=== PATIENT | male | born 1980 | race Caucasian/White ===

== ENCOUNTER → 2017-11-09 00:13 | Outpatient (CLI) | payer OTHER, SELFPAY ==
[2017-11-09 09:38] LABS: Abs Immature Grans 0.04 k/cumm (0.0-0.09); Absolute Basophil Count 0.02 k/cumm (0.0-0.2); Absolute Lymphocyte Count 3.29 k/cumm (1.2-3.4); Absolute Monocyte Count 0.77 k/cumm (0.11-0.7); Absolute Neutrophil Count 4.44 k/cumm (1.2-6.7); Basophils % 0.2; Eosinophils % 7.6; HCT 41.7 % (40.0-50.0); HGB 14.4 g/dL (13.5-17.5); Immature Grans % 0.4; Lymphocytes % 35.5; Mean Corp. HGB Concentration 34.5 g/dL (32.0-36.0); Mean Corpuscular Hemoglobin 30.1 pg (27.0-33.0); Mean Corpuscular Volume 87.1 fL (80-95); Mean Platelet Volume 9.5 fL (8.0-11.0); Monocytes % 8.3; Platelet Count 284 x1000/uL (130-400); RBC 4.79 m/cumm (4.50-6.00); RBC Distribution Width 12.6 % (11.8-14.1); White Blood Cell Count 9.26 k/cumm (4.4-10.8)
[2017-11-09 10:49] LABS: ALT 28 U/L (12-78); AST 17 U/L (15-37); Albumin 4.1 g/dL (3.4-5.0); Alkaline Phosphatase 91 U/L (46-116); Anion Gap 9.2 mmol/L (3-11); BUN 17 mg/dL (7-18); Bilirubin, Total 0.5 mg/dL (0.2-1.0); CO2 30.8 mmol/L (21.0-32.0); CREATININE 1.06 mg/dL (0.70-1.30); Calcium 8.9 mg/dL (8.5-10.1); Chloride 103 mmol/L (98-107); Cholesterol 186 mg/dL (50-200); Glucose 104 mg/dL (70-100); HDL Cholesterol 66 mg/dL (40-60); LDL CHOLESTEROL 108 mg/dL (<100); Potassium 4.2 mmol/L (3.5-5.1); Sodium 143 mmol/L (136-145); Total Protein 7.1 g/dL (6.4-8.2); Triglyceride 48 mg/dL (30-150)
== END ==
PROVIDERS: PCP Student in an Organized Health Care Education/Training Program; Visit Provider Student in an Organized Health Care Education/Training Program
DX: I10 Essential (primary) hypertension (principal); G47.62 Sleep related leg cramps; Z13.220 Encounter for screening for lipoid disorders; J45.20 Mild intermittent asthma, uncomplicated; Z87.01 Personal history of pneumonia (recurrent)
CPT/HCPCS: 36415; 80053; 80061; 83721; 85025

== ENCOUNTER 2018-06-28 08:11 | Outpatient (CLI) | payer OTHER, SELFPAY ==
[2018-06-28 11:00] LABS: BUN 11 mg/dL (7-18); CREATININE 0.96 mg/dL (0.70-1.30); Chloride 101 mmol/L (98-107); Glucose 94 mg/dL (70-100); Potassium 4.1 mmol/L (3.5-5.1); Sodium 140 mmol/L (136-145)
== END 2018-06-28 08:31 ==
PROVIDERS: PCP Student in an Organized Health Care Education/Training Program; Visit Provider Student in an Organized Health Care Education/Training Program
DX: R60.0 Localized edema (principal); R79.89 Other specified abnormal findings of blood chemistry
CPT/HCPCS: 36415; 80048

== ENCOUNTER 2018-08-23 01:09 | Outpatient (CLI) | payer OTHER, SELFPAY ==
[2018-08-23 10:20] LABS: ALT 29 U/L (12-78); AST 15 U/L (15-37); Albumin 3.8 g/dL (3.4-5.0); Alkaline Phosphatase 101 U/L (46-116); Anion Gap 7.6 mmol/L (3-11); BUN 14 mg/dL (7-18); Bilirubin, Total 0.3 mg/dL (0.2-1.0); CO2 33.4 mmol/L (21.0-32.0); Calcium 8.9 mg/dL (8.5-10.1); Chloride 101 mmol/L (98-107); Glucose 102 mg/dL (70-100); Potassium 4.4 mmol/L (3.5-5.1); Sodium 142 mmol/L (136-145); Total Protein 7.1 g/dL (6.4-8.2)
[2018-08-26 13:23] LABS: Testosterone, Free 6.23 ng/dL (4.65-18.1); Testosterone, Total 201 ng/dL (240-950)
== END 2018-08-23 01:29 ==
PROVIDERS: PCP Student in an Organized Health Care Education/Training Program; Visit Provider Student in an Organized Health Care Education/Training Program
DX: E46 Unspecified protein-calorie malnutrition (principal); R60.0 Localized edema; R53.83 Other fatigue; Z86.39 Personal history of other endocrine, nutritional and metabolic disease
CPT/HCPCS: 36415; 80053; 84402; 84403

== ENCOUNTER 2018-12-01 00:25 | Outpatient (CLI) | payer OTHER, SELFPAY ==
--- NOTE | 2018-12-01 11:41 | DI.RAD_ITS ---
SYMPTOM/DIAGNOSIS: R/O BONY PATHOLOGY S69.92XA LEFT THUMB: 12/01 Three views were obtained. No bony or soft tissue abnormality seen.
== END 2018-12-01 00:45 ==
PROVIDERS: PCP Student in an Organized Health Care Education/Training Program; Visit Provider Student in an Organized Health Care Education/Training Program
DX: S69.92XA Unspecified injury of left wrist, hand and finger(s), initial encounter (principal); M79.645 Pain in left finger(s)
CPT/HCPCS: 73140

== ENCOUNTER 2018-12-02 01:14 | Outpatient (CLI) | payer OTHER, SELFPAY ==
[2018-12-02 08:18] LABS: Anion Gap 6.2 mmol/L (3-11); BUN 15 mg/dL (7-18); CO2 31.8 mmol/L (21.0-32.0); CREATININE 1.09 mg/dL (0.70-1.30); Calcium 9.2 mg/dL (8.5-10.1); Chloride 102 mmol/L (98-107); Glucose 121 mg/dL (70-100); Potassium 3.9 mmol/L (3.5-5.1); Sodium 140 mmol/L (136-145)
[2018-12-02 20:12] LABS: Estradiol 25 pg/ml (0-40)
[2018-12-03 10:09] LABS: LH 2.5 mIU/ml (2-9)
[2018-12-03 10:11] LABS: Prolactin 6.6 ng/ml (2.1-17.7)
[2018-12-03 11:04] LABS: PSA, Screening 0.3 ng/ml (0-2.5)
[2018-12-05 02:24] LABS: Testosterone, Total 191 ng/dL (240-950)
== END 2018-12-02 01:34 ==
PROVIDERS: Urology; PCP Student in an Organized Health Care Education/Training Program; Visit Provider Student in an Organized Health Care Education/Training Program
DX: E29.1 Testicular hypofunction (principal); N62 Hypertrophy of breast; Z12.5 Encounter for screening for malignant neoplasm of prostate; R60.0 Localized edema; T50.2X5A Adverse effect of carbonic-anhydrase inhibitors, benzothiadiazides and other diuretics, initial encounter
CPT/HCPCS: 36415; 80048; 84153; 84403; 82670; 83002; 84146

== ENCOUNTER 2019-02-21 00:21 | Outpatient (CLI) | payer OTHER, SELFPAY ==
[2019-02-24 10:06] LABS: Testosterone, Total 909 ng/dL (240-950)
== END 2019-02-21 00:41 ==
PROVIDERS: PCP Student in an Organized Health Care Education/Training Program; Visit Provider Urology
DX: E29.1 Testicular hypofunction (principal)
CPT/HCPCS: 36415; 84403

== ENCOUNTER 2019-07-13 01:20 | Outpatient (CLI) | payer OTHER, SELFPAY ==
[2019-07-16 02:56] LABS: Testosterone, Total 397 ng/dL (240-950)
== END 2019-07-13 01:40 ==
PROVIDERS: PCP Student in an Organized Health Care Education/Training Program; Visit Provider Urology
DX: E29.1 Testicular hypofunction (principal)
CPT/HCPCS: 36415; 84403

== ENCOUNTER 2019-10-26 13:36 | Outpatient (REF) | payer OTHER, SELFPAY ==
[2019-10-29 15:30] LABS: Testosterone, Total 1140 ng/dL (240-950)
== END 2019-10-26 13:56 ==
LOC: LBN 13:36
PROVIDERS: PCP Student in an Organized Health Care Education/Training Program; Visit Provider Urology
DX: E29.1 Testicular hypofunction (principal)
CPT/HCPCS: 84403

== ENCOUNTER 2020-02-11 14:23 | Outpatient (REF) | payer OTHER, SELFPAY ==
[2020-02-16 12:31] LABS: Testosterone, Total 601 ng/dL (240-950)
== END 2020-02-11 14:43 ==
LOC: LBN 14:23
PROVIDERS: PCP Student in an Organized Health Care Education/Training Program; Visit Provider Nurse Practitioner Gerontology
DX: E29.1 Testicular hypofunction (principal)
CPT/HCPCS: 84403

== ENCOUNTER 2020-07-14 02:15 | Outpatient (CLI) | payer OTHER, SELFPAY ==
[2020-07-17 16:30] LABS: Testosterone, Total 266 ng/dL (240-950)
== END 2020-07-14 02:16 | disposition home or self-care (01) ==
LOC: LBO 02:15
PROVIDERS: PCP Student in an Organized Health Care Education/Training Program; Visit Provider Urology
DX: E29.1 Testicular hypofunction (principal)
CPT/HCPCS: 36415; 84403

== ENCOUNTER 2021-01-23 11:28 | Outpatient (CLI) | payer OTHER, SELFPAY ==
[2021-01-27 10:56] LABS: Testosterone, Total 543 ng/dL (240-950)
== END 2021-01-23 11:29 | disposition home or self-care (01) ==
PROVIDERS: PCP Student in an Organized Health Care Education/Training Program; Visit Provider Nurse Practitioner Gerontology
DX: E29.1 Testicular hypofunction (principal)
CPT/HCPCS: 36415; 84403

== ENCOUNTER 2021-07-31 01:38 | Outpatient (CLI) | payer BC, SELFPAY | END 2021-07-31 01:39 | disposition home or self-care (01) | LOC: LBO 01:39 | PROVIDERS: PCP Student in an Organized Health Care Education/Training Program; Visit Provider Nurse Practitioner Gerontology ==

== ENCOUNTER 2021-10-31 12:39 | Outpatient (CLI) | payer BC, SELFPAY ==
[2021-11-10 15:59] LABS: Testosterone, Total 1060 ng/dL (240-950)
== END 2021-10-31 12:40 | disposition home or self-care (01) ==
LOC: LBO 12:39
PROVIDERS: PCP Student in an Organized Health Care Education/Training Program; Visit Provider Nurse Practitioner Gerontology
DX: E29.1 Testicular hypofunction (principal)
CPT/HCPCS: 36415; 84403

== ENCOUNTER 2022-01-29 11:06 | Outpatient (CLI) | payer BC, OTHER, SELFPAY ==
--- NOTE | 2022-01-29 11:00 | RT.EKG_ITS ---
APPROVED REPORT Exam: Resting ECG Reason for Exam: HIGH RISK MEDICATION Patient Location: O HR:53 bpm ECG Measurements Heart Rate 53 AXIS MN 173 P 44 QRSd 93 QRS 22 QT 422 T 32 QTc 397 Conclusion Sinus rhythm...normal P axis, V-rate 50- 99
== END 2022-01-29 11:07 | disposition home or self-care (01) ==
PROVIDERS: PCP Student in an Organized Health Care Education/Training Program; Visit Provider Family Medicine
DX: Z51.81 Encounter for therapeutic drug level monitoring (principal)
CPT/HCPCS: 93005; 93010

== ENCOUNTER 2022-04-30 03:44 | Outpatient (CLI) | payer BC, SELFPAY ==
[2022-05-06 14:46] LABS: Testosterone, Total 832 ng/dL (240-950)
== END 2022-04-30 03:45 | disposition home or self-care (01) ==
PROVIDERS: PCP Student in an Organized Health Care Education/Training Program; Visit Provider Nurse Practitioner Gerontology
DX: E29.1 Testicular hypofunction (principal); R53.83 Other fatigue
CPT/HCPCS: 36415; 84403

== ENCOUNTER 2022-07-30 16:09 | Outpatient (REF) | payer SELFPAY ==
[2022-08-03 02:50] LABS: Testosterone, Total 460 ng/dL (240-950)
== END 2022-07-30 16:10 | disposition home or self-care (01) ==
LOC: LBO 16:09
PROVIDERS: PCP Student in an Organized Health Care Education/Training Program; Visit Provider Nurse Practitioner Gerontology
DX: E29.1 Testicular hypofunction (principal)
CPT/HCPCS: 36415; 84403

== ENCOUNTER 2023-01-01 01:52 | Outpatient (CLI) | payer OTHER, SELFPAY ==
[2023-01-04 11:56] LABS: Testosterone, Total 974 ng/dL (240-950)
== END 2023-01-01 01:53 | disposition home or self-care (01) ==
LOC: LOS 01:53
PROVIDERS: PCP Student in an Organized Health Care Education/Training Program; Visit Provider Nurse Practitioner Gerontology
DX: E29.1 Testicular hypofunction (principal)
CPT/HCPCS: 36415; 84403

== ENCOUNTER 2023-08-15 14:50 | Outpatient (CLI) | payer OTHER, SELFPAY ==
[2023-08-18 09:34] LABS: Anaplasma phagocytophilum Negative (Negative); B. miyamotoi PCR Negative (Negative); Babesia divergens/MO-1 Negative (Negative); Babesia duncani Negative (Negative); Babesia microti Negative (Negative); Ehrlichia chaffeensis Negative (Negative); Ehrlichia ewingii/canis Negative (Negative); Ehrlichia muris eauclairensis Negative (Negative)
[2023-08-18 12:13] LABS: Lyme Ab w Rflx to Lyme Confirm Negative (Negative)
[2023-08-20 14:49] LABS: Testosterone, Total 262 ng/dL (240-950)
== END 2023-08-15 14:51 | disposition home or self-care (01) ==
LOC: LBO 14:53
PROVIDERS: Nurse Practitioner Family; PCP Student in an Organized Health Care Education/Training Program; Visit Provider Nurse Practitioner Gerontology
DX: E29.1 Testicular hypofunction (principal); W57.XXXA Bitten or stung by nonvenomous insect and other nonvenomous arthropods, initial encounter; S80.861A Insect bite (nonvenomous), right lower leg, initial encounter; X58.XXXA Exposure to other specified factors, initial encounter
CPT/HCPCS: 36415; 84403; 87798; 86618

== ENCOUNTER 2023-11-12 00:50 | Outpatient (CLI) | payer OTHER, SELFPAY ==
--- NOTE | 2023-11-12 | DI.RAD_ITS ---
Exam(s) XR LUMBAR SPINE AP, LAT EXAM: XR LUMBAR SPINE AP, LAT CLINICAL HISTORY: Z02.71 Encounter for Disability Determination-Low back pain,. TECHNIQUE: 2D digital imaging was performed of the lumbar spine. Three images were obtained. AP, l ateral and L5-S1 spot views were obtained. COMPARISON: No exams were available for comparison FINDINGS: BONES: No fracture or destructive lesion. There are endplate osteophytes seen at multiple levels of t he lumbar spine. There are degenerative changes of the facets at L5-S1. DISKS: Disc space narrowing is seen at T12-L1, L1-L2 and L4-L5. ALIGNMENT: There is grade 1 anterolisthesis of L4 on L5. There is spondylolysis at L5. SOFT TISSUE: Normal. IMPRESSION: 1. 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 2. Mild degenerative changes seen in the lumbar spine as described above. DATA REPOSITORY: RADIATION DOSE DELIVERED:
== END 2023-11-12 01:10 ==
PROVIDERS: PCP Student in an Organized Health Care Education/Training Program; Visit Provider Pediatrics Pediatric Rheumatology
DX: M47.26 Other spondylosis with radiculopathy, lumbar region (principal)
CPT/HCPCS: 72100

== ENCOUNTER 2024-01-05 03:35 | Outpatient (CLI) | payer SELFPAY ==
[2024-01-10 11:49] LABS: Testosterone, Total 536 ng/dL (240-950)
== END 2024-01-05 03:36 | disposition home or self-care (01) ==
LOC: LBO 03:35
PROVIDERS: PCP Student in an Organized Health Care Education/Training Program; Visit Provider Nurse Practitioner Gerontology
DX: E29.1 Testicular hypofunction (principal)
CPT/HCPCS: 36415; 84403

== ENCOUNTER 2024-03-04 12:47 | Outpatient (CLI) | payer OTHER, SELFPAY ==
--- NOTE | 2024-03-04 12:45 | RT.EKG_ITS ---
APPROVED REPORT Exam: Resting ECG Reason for Exam: High Risk Medication Patient Location: O HR:64 bpm ECG Measurements Heart Rate 64 AXIS NE 173 P 44 QRSd 89 QRS 2 QT 393 T 49 QTc 406 Conclusion Sinus rhythm...normal P axis, V-rate 50- 99 Normal Electrocardiogram
== END 2024-03-04 12:48 | disposition home or self-care (01) ==
PROVIDERS: PCP Student in an Organized Health Care Education/Training Program; Visit Provider Family Medicine
DX: Z79.899 Other long term (current) drug therapy (principal)
CPT/HCPCS: 93005; 93010

== ENCOUNTER 2024-06-01 03:03 | Outpatient (CLI) | payer OTHER, SELFPAY ==
[2024-06-01 14:05] LABS: Abs Immature Grans 0.02 10^3/uL (0.0-0.06); Absolute Basophil Count 0.05 10^3/uL (0.0-0.2); Absolute Lymphocyte Count 2.57 10^3/uL (1.2-3.4); Absolute Monocyte Count 0.84 10^3/uL (0.1-0.8); Absolute Neutrophil Count 5.92 10^3/uL (1.2-6.7); Basophils % 0.5 %; Eosinophils % 7.8 %; HGB 14.6 g/dL (13.5-17.5); Immature Grans % 0.2 %; Lymphocytes % 25.2 %; MCH 29.9 pg (27.0-33.0); MCHC 33.2 % (32.0-36.0); MCV 90 fL (80-95); MPV 9.9 fL (8.0-11.0); Monocytes % 8.2 %; Neutrophils % 58.1 %; Platelet Count 235 10^3/uL (130-400); RBC 4.89 10^6/uL (4.36-5.78); RDW-SD 39.6 fL
[2024-06-01 14:16] LABS: Hemoglobin A1C 5.6 % (<5.7)
[2024-06-01 15:01] LABS: ALT 27 U/L (16-63); AST 20 U/L (15-37); Albumin 3.9 g/dL (3.4-5.0); Alkaline Phosphatase 68 U/L (46-116); Anion Gap 4.7 mmol/L (3-11); BUN 14 mg/dL (7-18); Bilirubin, Total 0.4 mg/dL (0.2-1.0); CO2 35.3 mmol/L (21.0-32.0); Calcium 9.4 mg/dL (8.5-10.1); Calculated LDL 79 mg/dL (<100); Chloride 103 mmol/L (98-107); Cholesterol 169 mg/dL (<200); Estimated GFR 95.18 (mL/min/1.73m2); Glucose 88 mg/dL (74-106); HDL Cholesterol 76 mg/dL (>or=40); Potassium 4.1 mmol/L (3.5-5.1); Sodium 143 mmol/L (136-145); Total Protein 6.7 g/dL (6.4-8.2); Triglyceride 72 mg/dL (<150)
== END 2024-06-01 03:04 | disposition home or self-care (01) ==
PROVIDERS: Visit Provider Nurse Practitioner Family
DX: F17.290 Nicotine dependence, other tobacco product, uncomplicated (principal); E29.1 Testicular hypofunction; Z13.228 Encounter for screening for other metabolic disorders; Z13.220 Encounter for screening for lipoid disorders; Z13.1 Encounter for screening for diabetes mellitus
CPT/HCPCS: 36415; 80053; 80061; 83036; 85025

== ENCOUNTER 2024-06-22 02:15 | Outpatient (CLI) | payer OTHER, SELFPAY ==
[2024-06-25 16:47] LABS: Testosterone, Total 160 ng/dL (240-950)
== END 2024-06-22 02:16 | disposition home or self-care (01) ==
LOC: LBO 02:16
PROVIDERS: PCP Nurse Practitioner Gerontology; Visit Provider Nurse Practitioner Gerontology
DX: E29.1 Testicular hypofunction (principal)
CPT/HCPCS: 36415; 84403

== ENCOUNTER 2024-09-23 02:39 | Outpatient (CLI) | payer OTHER, SELFPAY | END 2024-09-23 02:40 | disposition home or self-care (01) | LOC: LBO 02:39 | PROVIDERS: PCP Nurse Practitioner Gerontology; Visit Provider Nurse Practitioner Gerontology | DX: E29.1 Testicular hypofunction (principal) | CPT/HCPCS: 36415; 84403 ==